=== PATIENT | female | born 1955 | race Caucasian/White ===

== ENCOUNTER 2019-04-24 06:31 | Day surgery (SDC) | payer BC ==
[~2019-04-24] VITALS: Ht 167.6 cm; Wt 56.4 kg
[~2019-04-24 06:31] MED LIST: CENTRUM SILVER1 EAC2 PO; DIVIGEL; Estrogel93 GM TD; LORA.5 PO; MAGNESIUM OXID500 MG PO; MULVITMIND; OXYACE5T; VALACYCLOVIR1000 M1 PO; VITAMIN D32000 UNI3 PO
--- NOTE | 2019-04-24 07:18 | NUR ---
04/24/19 0718 Aydee Cabrales 1 IV MISS RH BY RN VALVE, 1 IV MISS RR BY MA VALVE, 1 IV MISS RAC BY MA VALVE, 1 IV MISS BY STEPHANIE LR VALVE, 1 IV GOOD BY STEPHANIE HAHN, PT TOW
== END 2019-04-24 08:41 | disposition home or self-care (01) ==
LOC: ORSCSDS 06:31
PROVIDERS: Surgery
PROC: 0DJD8ZZ Inspection of Lower Intestinal Tract, Via Natural or Artificial Opening Endoscopic (ICD-10-PCS; principal; 2019-04-24 08:00)
DX: Z12.11 Encounter for screening for malignant neoplasm of colon (principal); Z87.891 Personal history of nicotine dependence; Z79.899 Other long term (current) drug therapy
CPT/HCPCS: J2405; J2704; J7120

== ENCOUNTER → 2019-07-16 | Outpatient (CLI) | payer BC | END | disposition home or self-care (01) | LOC: LAB 08:32 → LAB SHORT 08:32 | DX: C44.629 Squamous cell carcinoma of skin of left upper limb, including shoulder (principal) | CPT/HCPCS: 88305 ==

== ENCOUNTER → 2019-12-21 | Outpatient (CLI) | payer BC | END | disposition home or self-care (01) | LOC: LAB 10:10 → LAB SHORT 10:10 | DX: N89.8 Other specified noninflammatory disorders of vagina (principal) | CPT/HCPCS: 87070; 87077; 87186; 87205 ==

== ENCOUNTER → 2021-04-05 | Outpatient (CLI) | payer BC | END | disposition home or self-care (01) | LOC: PLD 08:09 → LAB SHORT 08:09 | DX: D48.5 Neoplasm of uncertain behavior of skin (principal) | CPT/HCPCS: 88305 ==

== ENCOUNTER → 2021-10-05 | Outpatient (CLI) | payer BC | END | disposition home or self-care (01) | LOC: LAB 12:14 → PLD 12:14 → LAB SHORT 12:14 | DX: L83 Acanthosis nigricans (principal) | CPT/HCPCS: 88305 ==